=== PATIENT | male | born 1955 ===

== ENCOUNTER 2018-08-08 13:12 | Emergency (ER) | payer OTHER ==
[2018-08-08 13:17] VITALS: BMI 23.5
[2018-08-08 13:20] VITALS: BP 136/87; PULSE 85; RESP 18; TEMP 98.3; O2SAT 97
--- NOTE | 2018-08-08 13:33 | C.PDOC ---
History Of Present Illness 63 y/o male presents to ED complaining of right eye redness since yesterday. Patient states he was sneezing before it happened. He denies any pain or visual changes. Patient has no known medical history or any prescribed medications. Time Seen by Provider: 08/08/18 13:22 Chief Complaint (Nursing): Eye Problem History Per: Patient History/Exam Limitations: no limitations Onset/Duration Of Symptoms: Days Current Symptoms Are (Timing): Still Present Past Medical History Reviewed: Historical Data, Nursing Documentation, Vital Signs Vital Signs: Last Vital Signs Temp 98.3 F 08/08/18 13:17 Pulse 85 08/08/18 13:17 Resp 18 08/08/18 13:17 BP 136/87 08/08/18 13:17 Pulse Ox 97 08/08/18 13:17 Primary Care Provider: FAMILY PROVIDER,NO Family History: States: No Known Family Hx - Social History Hx Alcohol Use: No Hx Substance Use: No - Immunization History Hx Tetanus Toxoid Vaccination: No Hx Influenza Vaccination: No Hx Pneumococcal Vaccination: No Review Of Systems Except As Marked, All Systems Reviewed And Found Negative. Constitutional: Negative for: Fever, Chills Eyes: Positive for: Redness (right eye). Negative for: Pain, Vision Change Physical Exam - Physical Exam Appears: Non-toxic, No Acute Distress Skin: Warm, Dry Head: Normacephalic Eye(s): right: Other (subconjunctival hemorrhage), left: Normal Inspection Oral Mucosa: Moist Neurological/Psych: Oriented x3, Normal Speech Gait: Steady ED Course And Treatment O2 Sat by Pulse Oximetry: 97 (RA) Pulse Ox Interpretation: Normal Progress Note: Patient given prescription for artificial tears and was referred to an opthalmologist for follow up. Disposition - Disposition Referrals: Girish Molina MD [Staff Provider] - Disposition: HOME/ ROUTINE Disposition Time: 13:28 Condition: STABLE Additional Instructions: FOLLOW UP WITH BRADDER WITHIN 1-2 DAYS. RETURN TO ED IF FEEL WORSE. Prescriptions: Dextran 70/Hypromellose [Artificial Tears Eye Drops] 1 drop OP Q2 #15 ml Instructions: Subconjunctival Hemorrhage Forms: [employer] ([place]ian) - Clinical Impression Clinical Impression: Subconjunctival hemorrhage of right eye - PA / [employer] / Resident Statement MD/DO has reviewed & agrees with the documentation as recorded. - Scribe Statement The provider has reviewed the documentation as recorded by the Scribe Berenice Zavala All medical record entries made by the Scribe were at my direction and personally dictated by me. I have reviewed the chart and agree that the record accurately reflects my personal performance of the history, physical exam, medical decision making, and the department course for this patient. I have also personally directed, reviewed, and agree with the discharge instructions and disposition.
== END 2018-08-08 13:46 | disposition home or self-care (01) ==
LOC: C.ER 13:12
DX: H11.31 Conjunctival hemorrhage, right eye (principal)